=== PATIENT | male | born 1985 | race Hispanic/Latino ===

== ENCOUNTER 2018-06-26 16:53 | Emergency (ER) | payer BC ==
[2018-06-26 17:07] VITALS: BP 139/89; PULSE 98; RESP 16; TEMP 98.5; O2SAT 96
[2018-06-26] MEDS ORDERED: ceFAZolin IV 1 gm in Dextrose 1 GM/50 ML BAG IVPB STA (17:14)
[2018-06-26] MEDS ORDERED: Clindamycin 600mg/50ml D5W 600 MG/50 ML VIAL IVPB ONE (17:29)
--- NOTE | 2018-06-26 17:37 | ED PDOC ---
Upper Extremity Pain/Injury Time Seen by Provider: 06/26/18 17:05 Chief Complaint (Nursing): Upper Extremity Problem/Injury Chief Complaint (Provider): Upper Extremity Problem/Injury History Per: Patient History/Exam Limitations: no limitations Onset/Duration Of Symptoms: Days (x 6) Current Symptoms Are (Timing): Still Present Quality: "Pain" Additional Complaint(s): 33 year old male presents to the ED with right hand pain and swelling for the last 6 days. Patient initially dropped a knife on his index finger causing a laceration which was then repaired at [facility]. He subsequently developed swelling and pain in fever and removed the stitches himself. Denies fever and chills. PMD; none provided Past Medical History Reviewed: Historical Data, Nursing Documentation, Vital Signs Vital Signs: Last Vital Signs Temp 98.5 F 06/26/18 16:58 Pulse 98 H 06/26/18 16:58 Resp 16 06/26/18 16:58 BP 139/89 06/26/18 16:58 Pulse Ox 96 06/26/18 16:58 - Medical History PMH: No Chronic Diseases - Surgical History Surgical History: No Surg Hx - Family History Family History: States: Unknown Family Hx - Home Medications Home Medications: Ambulatory Orders Medication Instructions Recorded Clindamycin [Cleocin] 1 tab PO QID #28 cap 06/26/18 Naproxen 375 mg PO Q8 PRN #21 tablet 06/26/18 traMADol [Ultram] 50 mg PO Q8 PRN #10 tab 06/26/18 - Allergies Allergies/Adverse Reactions: Allergies Allergy/AdvReac Type Severity Reaction Status Date / Time No Known Allergies Allergy Verified 06/26/18 17:09 Review of Systems ROS Statement: Except As Marked, All Systems Reviewed And Found Negative Constitutional: Negative for: Fever, Chills Musculoskeletal: Positive for: Hand Pain (right index swelling and pain) Physical Exam - Reviewed Nursing Documentation Reviewed: Yes Vital Signs Reviewed: Yes - Physical Exam Appears: Positive for: Non-toxic, No Acute Distress Head Exam: Positive for: ATRAUMATIC, NORMAL INSPECTION, NORMOCEPHALIC Skin: Positive for: Normal Color, Warm, Dry Eye Exam: Positive for: EOMI, Normal appearance, PERRL Neck: Positive for: Normal, Painless ROM, Supple Cardiovascular/Chest: Positive for: Regular Rate, Rhythm. Negative for: Murmur Respiratory: Positive for: Normal Breath Sounds. Negative for: Wheezing, Respiratory Distress Gastrointestinal/Abdominal: Positive for: Normal Exam, Soft. Negative for: Tenderness Extremity: Positive for: Normal ROM, Swelling (noted at PIP joint with mild erythema on right hand) Neurologic/Psych: Positive for: Alert, Oriented (x 3). Negative for: Motor/ Sensory Deficits - Laboratory Results Result Diagrams: 06/26/18 18:12 06/26/18 18:12 - ECG O2 Sat by Pulse Oximetry: 96 (RA) Pulse Ox Interpretation: Normal - Progress ED Course And Treament: d/w dr. Whaley. Advised antibiotic clindamycin and f/u outpatient with him or alternative hand surgeon. clindamycin 600mg iv x 1 dose toradol 15 mg iv x 1 dose morphine 4 mg iv x 1 dose hand xry:no acute findings Unable to express prululent discharge to sent wound cx. Medical Decision Making Medical Decision Makin:13 Plan: --BMP --CBC --Clindamycin 600 mg PO --Wound cx --Hand x-ray Discussed with Dr. Bowen who states patient should be placed on oral antibiotics and will be referred to hand surgeon for follow up. Patient was given Toradol for pain. Scribe Attestation: Documented by Chel Arevalo, acting as a scribe for Brynn Hamilton PA-C Provider Scribe Attestation: All medical record entries made by the Scribe were at my direction and personally dictated by me. I have reviewed the chart and agree that the record accurately reflects my personal performance of the history, physical exam, medical decision making, and the department course for this patient. I have also personally directed, reviewed, and agree with the discharge instructions and disposition. Disposition - Clinical Impression Clinical Impression: Wound infection - Patient ED Disposition Is Patient to be Admitted: No - Disposition Referrals: Nighat Wasserman MD [Medical Doctor] - Reginald Whaley MD [Staff Provider] - Disposition: Routine/Home Disposition Time: 18:43 Condition: FAIR Prescriptions: Clindamycin [Cleocin] 1 tab PO QID #28 cap Naproxen 375 mg PO Q8 PRN #21 tablet PRN Reason: Pain, Moderate (4-7) traMADol [Ultram] 50 mg PO Q8 PRN #10 tab PRN Reason: Pain, Severe (8-10) Instructions: Laceration Infection (DC) Forms: [facility] ED School/Work Excuse
[2018-06-26 18:17] LABS: BASO # 0.1 K/uL (0.0-0.2); BASO % 0.7 % (0.0-2.0); EOS # 0.1 K/uL (0.0-0.7); EOS % 1.1 % (0.0-4.0); HEMOGLOBIN 14.7 g/dL (12.0-18.0); LYMPH # 2.7 K/uL (1.0-4.3); LYMPH % 29.8 % (20.0-40.0); MEAN CELL VOLUME 90.5 fl (80.0-94.0); MEAN CORPUSCULAR HEMOGLOBIN 31.6 pg (27.0-31.0); MEAN CORPUSCULAR HGB CONC 34.9 g/dL (33.0-37.0); MEAN PLATELET VOLUME 9.6 fl (7.2-11.7); MONO # 0.6 K/uL (0.0-0.8); MONO % 6.5 % (0.0-10.0); NEUT # 5.6 K/uL (1.8-7.0); NEUT % 61.9 % (50.0-75.0); RBC 4.67 Mil/uL (4.40-5.90)
[2018-06-26 18:26] LABS: CALCIUM 9.9 mg/dL (8.4-10.2); GFR NON-AFRICAN AMERICAN > 60
[2018-06-26 18:32] LABS: BLOOD UREA NITROGEN 13 mg/dl (9-20)
--- NOTE | 2018-06-27 09:38 | RAD ---
PROCEDURE: Right Hand Radiographs. HISTORY: hand swelling COMPARISON: None. FINDINGS: BONES: No acute fracture or destructive bony lesion identified. JOINTS: Normal. No osteoarthritic changes. SOFT TISSUES: Normal. OTHER FINDINGS: None. IMPRESSION: Normal right hand radiographs.
== END 2018-06-26 19:16 | disposition home or self-care (01) ==
LOC: H.ER 16:53
DX: T81.4XXA Infection following a procedure, initial encounter (principal)
CPT/HCPCS: 73130; 80048; 85025; 96374; 96375; 99284; J1885; J2270

== ENCOUNTER 2018-07-16 03:53 | Emergency (ER) | payer BC ==
[2018-07-16 04:12] VITALS: BP 132/80; PULSE 82; RESP 16; TEMP 98.2; O2SAT 97
--- NOTE | 2018-07-16 04:18 | ED PDOC ---
HPI: Psych/Substance Abuse Time Seen by Provider: 07/16/18 04:02 History Per: Patient History/Exam Limitations: no limitations Onset/Duration Of Symptoms: Other Current Symptoms Are (Timing): Still Present Modifying Factor(s): Alcohol Additional Complaint(s): Patient brought to the ER for eval of alcohol intoxication. Patient rude and uncooperative, but currently A&O x 3 with steady gait. Patient has no complaints. Past Medical History Reviewed: Historical Data, Nursing Documentation, Vital Signs - Medical History PMH: Denies: HIV - Family History Family History: States: Unknown Family Hx - Home Medications Home Medications: Ambulatory Orders Medication Instructions Recorded Desvenlafaxine Succinate [Pristiq] 1 tab PO DAILY 06/27/18 Clindamycin [Cleocin] 300 mg PO Q8 #21 cap 07/01/18 Saccharomyces Boulardi [Florastor] 250 mg PO BID #14 cap 07/01/18 - Allergies Allergies/Adverse Reactions: Allergies Allergy/AdvReac Type Severity Reaction Status Date / Time No Known Allergies Allergy Verified 06/27/18 11:22 Review of Systems ROS Statement: Except As Marked, All Systems Reviewed And Found Negative Physical Exam - Reviewed Nursing Documentation Reviewed: Yes Vital Signs Reviewed: Yes - Physical Exam Appears: Positive for: Well, Non-toxic, No Acute Distress Head Exam: Positive for: ATRAUMATIC, NORMAL INSPECTION, NORMOCEPHALIC Skin: Positive for: Normal Color, Warm, DRY Eye Exam: Positive for: EOMI, Normal appearance, PERRL ENT: Positive for: Normal ENT Inspection Neck: Positive for: Normal, Painless ROM Cardiovascular/Chest: Positive for: Regular Rate, Rhythm Respiratory: Positive for: CNT, Normal Breath Sounds Gastrointestinal/Abdominal: Positive for: Normal Exam, Soft Back: Positive for: Normal Inspection Extremity: Positive for: Other (R arm in splint, healing infection to hand, well-appearing) Neurologic/Psych: Positive for: Alert, Oriented - ECG Pulse Ox Interpretation: Normal Medical Decision Making Medical Decision Making: Vitals stable Patient sober enough for discharge Disposition - Clinical Impression Clinical Impression: Alcohol intoxication - Disposition Referrals: Alcoholics Anonymous [Outside] Disposition: Routine/Home Disposition Time: 04:19 Condition: STABLE Instructions: Alcohol Use - When Is Drinking a Problem?, Alcohol Abuse and Alcoholism (DC)
== END 2018-07-16 04:12 | disposition home or self-care (01) ==
LOC: H.ER 03:53
DX: F10.129 Alcohol abuse with intoxication, unspecified (principal)